=== PATIENT | female | born 1965 | race Caucasian/White ===

== ENCOUNTER 2017-02-04 13:28 | Inpatient (IN) | payer OTHER ==
[~2017-02-04] VITALS: Ht 170.2 cm; Wt 63.2 kg
[2017-02-04 14:53] LABS: BASO # 0.1 (0.0-0.2); BASO % 0.6 % (0.0-2.0); EOS # 0.1 (0.0-0.7); EOS % 0.6 % (0-4.0); GRAN # 8.6 (1.4-6.5); GRAN % 74.6 % (42.2-75.2); HEMATOCRIT 43.1 % (37.0-47.0); HEMOGLOBIN 14.7 g/dl (12.5-16.0); LYMPH % 17.2 % (20.0-51.0); MEAN CELL VOLUME 97 fl (80.0-100.0); MEAN CORPUSCULAR HEMOGLOBIN 33 pg (27.0-31.0); MEAN CORPUSCULAR HGB CONC 34 g/dl (33.0-37.0); MEAN PLATELET VOLUME 10.3 fl (7.4-10.4); MONO # 0.7 (0.1-0.6); MONO % 6.4 % (1.7-9.3); PLATELET COUNT 264 K/mm3 (130-400); RED BLOOD COUNT 4.44 M/mm3 (4.10-5.30); REDCELL DISTRIBUTION WIDTH-CV 16.3 % (11.5-14.5); WHITE BLOOD COUNT 11.5 K/mm3 (4.8-10.8)
[2017-02-04 15:00] LABS: INR 1.1 (0.8-3.0); PROTHROMBIN TIME 12.4 SECONDS (9.7-12.8)
[2017-02-04 15:02] LABS: PARTIAL THROMBOPLASTIN TIME 27.6 SECONDS (26.0-37.0)
[2017-02-04 15:08] LABS: ARTERIAL BLD GAS O2 SATURATION 95.2 % (92-100); ARTERIAL BLD GAS TCO2 CT 21.3; ARTERIAL BLOOD GAS BASE EXCESS -2.6 (-2-2); ARTERIAL BLOOD GAS HCO3 20.4 meq/L (22-26); ARTERIAL BLOOD GAS PHT 7.44 C (7.35-7.45); ARTERIAL BLOOD GAS PO2 75.4 mmHg (80-100); ARTERIAL BLOOD GAS PO2T 75.4 (80-100); ARTERIAL BLOOD GAS pH 7.44 (7.35-7.45); OXYHEMOGLOBIN 92.8 %
[2017-02-04 15:10] LABS: ATS? YES
[2017-02-04 15:11] LABS: ADJUSTED CALCIUM 9.2 mg/dL (8.4-10.2); ALBUMIN 3.9 gm/dL (3.5-5.0); BILIRUBIN,TOTAL 1.4 mg/dL (0.0-1.0); CALCIUM 9.1 mg/dL (8.4-10.2); CREATININE, serum 0.98 mg/dL (0.52-1.25); POTASSIUM 3.9 mmol/L (3.4-5.0); TOTAL PROTEIN 6.5 gm/dL (6.4-8.2)
[2017-02-04 15:23] LABS: TROPONIN-I 0.045 ng/mL (0.000-0.034)
[2017-02-04 17:06] VITALS: BP 157/106; PULSE 125; TEMP 98.1
[2017-02-04 17:09] VITALS: BP 157/106; PULSE 105; TEMP 98.2
[2017-02-04 18:58] LABS: PH 6 (5-8); SQUAMOUS EPITHELIAL None Seen /hpf; URINE APPEARANCE Clear; URINE BACTERIA None Seen /hpf; URINE BILIRUBIN Negative (NEGATIVE); URINE BLOOD Negative (NEGATIVE); URINE COLOR Colorless; URINE GLUCOSE Negative (NEGATIVE); URINE KETONE Negative (NEGATIVE); URINE RBC 0-2 /hpf; URINE UROBILINOGEN Negative (NEGATIVE); URINE WBC 0-2 /hpf
[2017-02-04 19:54] VITALS: BP 135/95; PULSE 86; TEMP 98.4
[2017-02-05] VITALS (7 sets, daily range): BP systolic 102–140; BP diastolic 62–95; PULSE 61–85; TEMP 97.6–98.6
[2017-02-05 07:28] LABS: BASO # 0.1 (0.0-0.2); EOS # 0.2 (0.0-0.7); EOS % 2.4 % (0-4.0); GRAN # 4.4 (1.4-6.5); GRAN % 53.7 % (42.2-75.2); HEMATOCRIT 41.5 % (37.0-47.0); HEMOGLOBIN 14.1 g/dl (12.5-16.0); LYMPH # 2.9 (1.2-3.4); LYMPH % 35.3 % (20.0-51.0); MEAN CELL VOLUME 97 fl (80.0-100.0); MEAN CORPUSCULAR HEMOGLOBIN 33 pg (27.0-31.0); MEAN CORPUSCULAR HGB CONC 34 g/dl (33.0-37.0); MEAN PLATELET VOLUME 10.1 fl (7.4-10.4); MONO # 0.6 (0.1-0.6); MONO % 7.1 % (1.7-9.3); PLATELET COUNT 235 K/mm3 (130-400); RED BLOOD COUNT 4.27 M/mm3 (4.10-5.30); REDCELL DISTRIBUTION WIDTH-CV 16.3 % (11.5-14.5); WHITE BLOOD COUNT 8.2 K/mm3 (4.8-10.8)
[2017-02-05 07:46] LABS: CALCIUM 8.6 mg/dL (8.4-10.2); CREATININE, serum 1.02 mg/dL (0.52-1.25); MAGNESIUM 1.7 mg/dL (1.6-2.3); POTASSIUM 3.4 mmol/L (3.4-5.0)
[2017-02-05 07:56] LABS: TROPONIN-I 0.059 ng/mL (0.000-0.034)
[2017-02-05] MEDS ORDERED: K-DUR 10 MEQ T10 MEQ PO (15:53)
[2017-02-06 03:04] VITALS: BP 118/73; PULSE 50; TEMP 98.3
[2017-02-06 07:14] LABS: CALCIUM 8.7 mg/dL (8.4-10.2); CREATININE, serum 0.99 mg/dL (0.52-1.25); MAGNESIUM 2.3 mg/dL (1.6-2.3); POTASSIUM 3.8 mmol/L (3.4-5.0)
[2017-02-06 08:29] VITALS: BP 124/98; PULSE 83; TEMP 98
[2017-02-06 11:33] VITALS: BP 112/76; PULSE 73; TEMP 97.5
[2017-02-06 15:13] VITALS: BP 103/75; PULSE 80; TEMP 97.7
[2017-02-06 21:11] VITALS: BP 100/76; PULSE 79; TEMP 97.9
[2017-02-07] VITALS (7 sets, daily range): BP systolic 91–138; BP diastolic 58–95; PULSE 69–85; TEMP 97.3–98.5
[2017-02-07 09:17] LABS: CALCIUM 8.9 mg/dL (8.4-10.2); CREATININE, serum 1.19 mg/dL (0.52-1.25); MAGNESIUM 2.1 mg/dL (1.6-2.3); POTASSIUM 4.2 mmol/L (3.4-5.0)
[2017-02-08 04:06] VITALS: BP 114/77; PULSE 78; TEMP 98.2
[2017-02-08 07:44] VITALS: BP 101/70; PULSE 67; TEMP 97.6
[2017-02-08] MEDS ORDERED: ASPIRIN E.C. 8181 MG PO (10:14)
[2017-02-08] MEDS ORDERED: MAG-OX 400400 MG/TAB PO (10:14)
[2017-02-08] MEDS ORDERED: LOPRESSOR 225 MG/TAB PO (10:15)
[2017-02-08] MEDS ORDERED: LASIX 40MG TABL40 MG PO ×2 (10:16→10:22)
[2017-02-08] MEDS ORDERED: ZESTRIL 10MG10 MG PO (10:16)
[2017-02-08] MEDS ORDERED: PRAVACHOL 20MG20 MG PO (10:16)
[2017-02-08] MEDS ORDERED: RT ADVAIR HFA 1112 G IH (10:17)
[2017-02-08] MEDS ORDERED: K-DUR 10 MEQ T10 MEQ PO (10:17)
[2017-02-08 10:56] LABS: CALCIUM 9.3 mg/dL (8.4-10.2); CREATININE, serum 1.14 mg/dL (0.52-1.25); MAGNESIUM 2.1 mg/dL (1.6-2.3); POTASSIUM 4.4 mmol/L (3.4-5.0)
[2017-02-08 11:52] VITALS: BP 99/67; PULSE 73; TEMP 98.4
[2017-02-08 15:50] VITALS: BP 97/67; PULSE 78; TEMP 97.8
== END 2017-02-08 19:10 | disposition home or self-care (01) | DRG 282 ==
LOC: COL.ER 13:28 → MEDICAL 15:36
PROVIDERS: Emergency Medicine; Internal Medicine; Internal Medicine Cardiovascular Disease; Physician Assistant
DX: I11.0 Hypertensive heart disease with heart failure (principal); I21.4 Non-ST elevation (NSTEMI) myocardial infarction; I42.8 Other cardiomyopathies; I50.9 Heart failure, unspecified; J44.9 Chronic obstructive pulmonary disease, unspecified; F17.210 Nicotine dependence, cigarettes, uncomplicated; Z91.14 Patient's other noncompliance with medication regimen
CPT/HCPCS: 99223-AI; 99232-AI; 99233-AI; 99239; J1650; J1940; J3475

== ENCOUNTER → 2020-05-17 | Outpatient (CLI) | payer SELFPAY ==
[~2020-05-17] VITALS: Ht 170.2 cm; Wt 60.4 kg
[~2020-05-17] MED LIST: ALDACTONE50 MG PO; ASPIRIN E.C. 8181 MG PO; CORDARONE200 MG/TAB PO; K-DUR 10 MEQ T10 MEQ PO; K-DUR20 MEQ PO; LASIX 20MG TABL20 MG PO; LASIX 40MG TABL40 MG PO; LIPITOR 40MG TA40 MG PO; LOPRESSOR 225 MG/TAB PO; MAG-OX 400400 MG/TAB PO; PRAVACHOL 20MG20 MG PO; RT ADVAIR HFA 1112 G IH; SYNTHROID 0.0.025 MG PO; ZESTRIL 10MG10 MG PO
[2020-05-17 13:49] VITALS: BP 124/79; PULSE 76
[2020-05-17 14:40] VITALS: BP 131/81; PULSE 79
[2020-05-17 16:59] LABS: PERITONEAL -POLYMORPHONUCLEAR 7.4 % (0-25); PERITONEAL FLUID RBC 2000 /mm3 (0-0)
== END ==
LOC: COL.RAD 13:06
PROVIDERS: Physician Assistant
DX: K74.60 Unspecified cirrhosis of liver (principal)

== ENCOUNTER → 2020-05-28 | Outpatient (CLI) | payer SELFPAY | LOC: ZCOL.LAB 19:30 | DX: Z20.828 Contact with and (suspected) exposure to other viral communicable diseases (principal) ==

== ENCOUNTER 2020-06-19 09:25 | Day surgery (SDC) | payer MEDICAID ==
[2020-06-19] VITALS (15 sets, daily range): BP systolic 96–140; BP diastolic 58–84; PULSE 59–71; TEMP 97.6
[~2020-06-19] VITALS: Ht 170.3 cm; Wt 61.0 kg
[~2020-06-19 09:25] MED LIST changes: +ALDACTONE 100M100 MG PO; -ALDACTONE50 MG PO
--- NOTE | 2020-06-19 11:15 | NUR ---
Pt to procedure,report to Angelo Olsen.
[2020-06-19 11:16] LABS: HEMOGLOBIN 11.4 g/dl (12.5-16.0); MEAN CELL VOLUME 99 fl (80.0-100.0); MEAN CORPUSCULAR HEMOGLOBIN 33 pg (27.0-31.0); MEAN CORPUSCULAR HGB CONC 34 g/dl (33.0-37.0); MEAN PLATELET VOLUME 9.2 fl (7.4-10.4); PLATELET COUNT 191 K/mm3 (130-400); RED BLOOD COUNT 3.42 M/mm3 (4.10-5.30); REDCELL DISTRIBUTION WIDTH-CV 16.7 % (11.5-14.5)
[2020-06-19 11:20] LABS: CALCIUM 9.1 mg/dL (8.4-10.2); CREATININE, serum 1.7 (0.52-1.25); POTASSIUM 5.4 mmol/L (3.4-5.0)
[2020-06-19] MEDS ORDERED: CEPHALEXIN500 M1 PO (11:20)
--- NOTE | 2020-06-19 11:26 | NUR ---
SEE MERGE DOCUMENTATION FOR MEDICATION ADMINISTRATION TIMES AND INTRA/POST PROCEDURE SEDATION ASSESSMENTS. RIGHT HAND BARBEAU TEST POSITIVE. LABS PENDING AT THIS TIME; OK TO PREP PATIENT PER MD.
[2020-06-19 11:27] LABS: INR 1.2 (0.8-3.0); PROTHROMBIN TIME 13.3 SECONDS (9.7-12.8)
[2020-06-19 11:29] LABS: PARTIAL THROMBOPLASTIN TIME 38.9 SECONDS (26.0-37.0)
--- NOTE | 2020-06-19 14:10 | NUR ---
#ml of air released from bnd.Bleeding observed at site.air reinstilled back into band,3ml.
--- NOTE | 2020-06-19 17:34 | NUR ---
Discharge instructions given to pt.pt verbalizes understanding.INT removed,catheter tip intact.
--- NOTE | 2020-06-19 17:55 | NUR ---
Pt escorted out via wheelchair by this nurse.
== END 2020-06-19 18:44 | disposition home or self-care (01) ==
LOC: COL.CAR 09:25
PROVIDERS: Internal Medicine Cardiovascular Disease
DX: I25.10 Atherosclerotic heart disease of native coronary artery without angina pectoris (principal); E78.5 Hyperlipidemia, unspecified; I49.3 Ventricular premature depolarization; Z79.82 Long term (current) use of aspirin; F17.210 Nicotine dependence, cigarettes, uncomplicated; E03.9 Hypothyroidism, unspecified; I11.0 Hypertensive heart disease with heart failure; I50.20 Unspecified systolic (congestive) heart failure
CPT/HCPCS: J1644; J2250; J3010; J7030; Q9967